=== PATIENT | female | born 2000 | race Asian ===

== ENCOUNTER 2023-09-20 20:28 | Emergency (ER) | payer OTHER ==
[~2023-09-20] VITALS: Ht 157.5 cm; Wt 51.7 kg
[2023-09-20] MEDS ORDERED: MULTTAB20 PO (20:47)
[2023-09-20 21:39] LABS: BASO % 0.3 % (0.0-1.0); EOS # 0.1 10^3/uL (0.0-0.5); EOS % 1.1 % (0.0-3.0); HEMATOCRIT 34.1 % (36.0-47.0); LYMPH # 3.2 10^3/uL (1.5-5.0); LYMPH % 26.3 % (24.0-44.0); MEAN CORPUSCULAR HEMOGLOBIN 30.8 pg (27.0-33.0); MEAN CORPUSCULAR HGB CONC 35.2 g/dl (32.0-36.5); MEAN CORPUSCULAR VOLUME 87.7 fl (80.0-96.0); MONO # 0.8 10^3/uL (0.0-0.8); MONO % 6.8 % (2.0-8.0); NEUTROPHILS # 7.9 10^3/uL (1.5-8.5); NEUTROPHILS % 65.2 % (36.0-66.0); PLATELET COUNT, AUTOMATED 246 10^3/uL (150-450); RED BLOOD COUNT 3.89 10^6/uL (4.00-5.40); WHITE BLOOD COUNT 12.1 10^3/uL (4.0-10.0)
[2023-09-20 22:04] LABS: BLOOD UREA NITROGEN 8 MG/DL (9-23); CALCIUM LEVEL 8.5 MG/DL (8.5-10.1); CARBON DIOXIDE LEVEL 21 MMOL/L (20-31); CHLORIDE LEVEL 108 MMOL/L (98-107); CREATININE FOR GFR 0.44 MG/DL (0.55-1.30); GLOMERULAR FILTRATION RATE > 60.0 (>60); GLUCOSE, FASTING 79 MG/DL (60-100); POTASSIUM SERUM 3.9 MMOL/L (3.5-5.1); SODIUM LEVEL 138 MMOL/L (136-145)
[2023-09-20 22:18] LABS: HCG, SERUM QUANTITATIVE 57234.2 MIU/ML (<4.2)
[2023-09-20] MEDS ORDERED: CEPH500C PO (23:49)
[2023-09-20 23:56] VITALS: BP 100/65; TEMP 98.4; O2SAT 99
== END 2023-09-20 23:58 | disposition home or self-care (01) ==
LOC: M ED 20:28
DX: R10.2 Pelvic and perineal pain (principal); R82.71 Bacteriuria; Z79.2 Long term (current) use of antibiotics; Z79.810 Long term (current) use of selective estrogen receptor modulators (SERMs)

== ENCOUNTER → 2024-03-09 | Outpatient (REF) | payer OTHER ==
[~2024-03-09] MED LIST: CEPH500C PO; MULTTAB20 PO
== END ==
LOC: M SFHCWAGY 17:05
PROVIDERS: ATTEND Nurse Practitioner Family
DX: Z34.03 Encounter for supervision of normal first pregnancy, third trimester (principal)

== ENCOUNTER 2024-04-04 06:02 | Inpatient (IN) | payer OTHER ==
[~2024-04-04] VITALS: Ht 154.9 cm; Wt 69.2 kg
[2024-04-04] VITALS (32 sets, daily range): BP systolic 84–180; BP diastolic 51–87
[2024-04-04] MEDS ORDERED: HOME MED LIST COMPLETE! XX SCH (06:25)
[2024-04-04] MEDS ORDERED: CARBOPROST TROMETHAMINE 250 MCG/ML AMP IM PRN (07:00)
[2024-04-04] MEDS ORDERED: METHYLERGONOVINE MALEATE 0.2MG/ML 1ML VIAL IM PRN (07:00)
[2024-04-04] MEDS ORDERED: OXYTOCIN DRIP 30 UNITS in IV 1 EA IV PRN (07:00)
[2024-04-04] MEDS ORDERED: TRANEXAMIC ACID INJection 1,000 MG in NS 100 ML IV PRN (07:00)
[2024-04-04] MEDS ORDERED: LACTATED RINGER'S 1000 ML IV PRN (07:00)
[2024-04-04 08:12] LABS: HEMATOCRIT 39.5 % (36.0-47.0); HEMOGLOBIN 13.9 g/dl (12.0-15.5); MEAN CORPUSCULAR HEMOGLOBIN 32.6 pg (27.0-33.0); MEAN CORPUSCULAR HGB CONC 35.2 g/dl (32.0-36.5); MEAN CORPUSCULAR VOLUME 92.5 fl (80.0-96.0); PLATELET COUNT, AUTOMATED 226 10^3/uL (150-450); RED BLOOD COUNT 4.27 10^6/uL (4.00-5.40); WHITE BLOOD COUNT 12.9 10^3/uL (4.0-10.0)
[2024-04-04] MEDS: miSOPROStol 50MCG 1/2 TABLET PO SCH (10:34)
[2024-04-04 11:44] LABS: HEPATITIS C VIRUS ABY INDEX 0.16 INDEX (<0.8)
[2024-04-04] MEDS ORDERED: diphenhydrAMINE 50MG/ML VIAL IV PRN (17:40)
[2024-04-04] MEDS ORDERED: ePHEDrine SULFATE 25 MG/5 ML(5MG/ML) SYRINGE IVP PRN (17:40)
[2024-04-04] MEDS ORDERED: EPIDURAL/PCA KEYS XX PRN (17:40)
[2024-04-04] MEDS ORDERED: ONDANSETRON 4MG 2ML VIAL IV PRN (17:40)
[2024-04-04] MEDS ORDERED: NALOXONE INJ 0.4MG/1ML VIAL IV PRN (17:40)
[2024-04-04] MEDS ORDERED: FENTANYL/ROPIVACAINE/NACL BAG 100 ML EPIDURAL SCH (17:40)
[2024-04-04] MEDS: LR 500 ML IV PRN (17:52)
[2024-04-04] MEDS: OXYTOCIN DRIP 30 UNITS in IV 1 EA IV SCH (19:20)
[2024-04-04] MEDS ORDERED: TERBUTALINE SULFATE 1 MG/ML 1ML VIAL As Ordered ONE (19:49)
[2024-04-05] VITALS (11 sets, daily range): BP systolic 93–127; BP diastolic 54–74; TEMP 99; O2SAT 97–99
[2024-04-05] MEDS: BICITRA 30ML SOLN UDC PO ONE (00:52)
[2024-04-05] MEDS: ceFAZolin SOD 2 GM in IV 1 EA IV ONE (00:53)
[2024-04-05] MEDS: AZITHROMYCIN INJ 500 MG, VIAL MATE ADAPTER 1 EACH in NS 250 ML IV ONE (00:53)
[2024-04-05] MEDS ORDERED: MORPHINE PRES-FREE INJ 10 MG/10 ML VIAL As Ordered ONE (01:07)
[2024-04-05] MEDS ORDERED: LIDOCAINE 2% W/EPINEPHRINE 20ML VIAL **PRES FREE As Ordered ONE (01:07)
[2024-04-05] MEDS ORDERED: OXYTOCIN 30UNITS IN 0.9% NaCl 500ML IV BAG As Ordered ONE (01:07)
[2024-04-05] MEDS ORDERED: ACETAMINOPHEN 1000MG/100ML IV BAG As Ordered ONE (01:07)
[2024-04-05] MEDS ORDERED: KETOROLAC 60MG 2ML VIAL As Ordered ONE (01:07)
[2024-04-05] MEDS ORDERED: ONDANSETRON 4MG 2ML VIAL As Ordered ONE (01:07)
[2024-04-05 01:25] LABS: CORD GAS ABE A -5.5; CORD GAS HCO3 A 21.8 MMOL/L; CORD GAS O2 SAT A 54.7 %; CORD GAS PCO2 A 49.3 mmHg; CORD GAS PH A 7.264 UNITS; CORD GAS PO2 A 24.8 mmHg; CORD GAS TCO2 A 23.3 MMOL/L
[2024-04-05] MEDS ORDERED: **NOTE PATIENT COMMENT** MISC XX SCH (01:25)
[2024-04-05] MEDS ORDERED: SLF 3 ML SYR IV SCH (01:25)
[2024-04-05] MEDS ORDERED: MEPERIDINE 25 MG/ML 1ML VIAL IV PRN (01:25)
[2024-04-05] MEDS ORDERED: LR 1,000 ML IV SCH (01:25)
[2024-04-05] MEDS ORDERED: fentaNYL 100 MCG/2 ML INJECTION IV PRN (01:25)
[2024-04-05] MEDS ORDERED: oxyCODONE 5MG TAB PO PRN (01:25)
[2024-04-05] MEDS ORDERED: ONDANSETRON 4MG 2ML VIAL IV PRN (01:25)
[2024-04-05] MEDS ORDERED: METOCLOPRAMIDE INJ 10MG/2ML VIAL IV PRN (01:25)
[2024-04-05] MEDS ORDERED: NALOXONE INJ 0.4MG/1ML VIAL IV PRN ×2 (01:25)
[2024-04-05] MEDS ORDERED: diphenhydrAMINE 50MG/ML VIAL IV PRN (01:25)
[2024-04-05 01:26] LABS: CORD GAS ABE V -4.1; CORD GAS HCO3 V 22.2 MMOL/L; CORD GAS O2 SAT V 70.3 %; CORD GAS PCO2 V 45.1 mmHg; CORD GAS PH V 7.311 UNITS; CORD GAS PO2 V 31.2 mmHg; CORD GAS SBC V 20.4 MMOL/L; CORD GAS TCO2 V 23.6 MMOL/L
[2024-04-05] MEDS ORDERED: DOCUSATE SODIUM 100MG CAPSULE PO PRN (01:55)
[2024-04-05] MEDS ORDERED: ONDANSETRON 4MG TAB PO PRN (01:55)
[2024-04-05] MEDS: LR 1,000 ML IV SCH (01:55)
[2024-04-05] MEDS ORDERED: RHOGAM 300MCG (1500IU) INJ IM SCH (01:55)
[2024-04-05] MEDS ORDERED: SIMETHICONE 80MG CHEW TAB PO PRN (01:55)
[2024-04-05] MEDS ORDERED: PERCOCET 5MG/325MG TAB PO PRN ×2 (01:55)
[2024-04-05] MEDS: OXYTOCIN DRIP 30 UNITS in IV 1 EA IV SCH (02:51)
[2024-04-05] MEDS: PRENATAL VITAMINS CHEWABLE TABLET PO SCH (08:57)
[2024-04-05] MEDS: KETOROLAC 30 MG/ML 1ML VIAL IV SCH (08:57)
[2024-04-06] MEDS ORDERED: OXYC1TAB23 PO (00:22)
[2024-04-06] MEDS ORDERED: IBUP80TA PO (00:22)
[2024-04-06] MEDS ORDERED: COLA100C5 PO (00:22)
[2024-04-06 02:00] VITALS: BP 98/52; O2SAT 97
[2024-04-06] MEDS: IBUPROFEN 800 MG TAB PO SCH (03:58)
[2024-04-06 06:00] VITALS: BP 93/50; O2SAT 100
[2024-04-06 06:56] LABS: HEMATOCRIT 30.3 % (36.0-47.0); MEAN CORPUSCULAR HEMOGLOBIN 32.3 pg (27.0-33.0); MEAN CORPUSCULAR HGB CONC 33.7 g/dl (32.0-36.5); MEAN CORPUSCULAR VOLUME 95.9 fl (80.0-96.0); PLATELET COUNT, AUTOMATED 184 10^3/uL (150-450); RED BLOOD COUNT 3.16 10^6/uL (4.00-5.40); WHITE BLOOD COUNT 11.6 10^3/uL (4.0-10.0)
[2024-04-06 06:58] LABS: HEMOGLOBIN 10.2 g/dl (12.0-15.5)
[2024-04-06 10:00] VITALS: BP 102/63; O2SAT 100
[2024-04-06 14:00] VITALS: BP 105/66; O2SAT 98
[2024-04-06 17:54] VITALS: BP 123/73; O2SAT 99
[2024-04-06 22:00] VITALS: BP 111/60; O2SAT 98
[2024-04-07 01:56] VITALS: BP 112/63; O2SAT 99
[2024-04-07 06:00] VITALS: BP 112/58; O2SAT 99
[2024-04-07] MEDS ORDERED: MEASLES,MUMPS,RUBELLA VACCINE INJ (MMR-II) SC.IMMUN ONE (09:00)
== END 2024-04-07 14:15 | disposition home or self-care (01) | DRG 788 ==
LOC: M LDO 06:02 → M LDI 06:53 → M OBS 04-05 03:35
PROVIDERS: ADMIT Obstetrics & Gynecology; ATTEND Specialist
PROC: 10D00Z1 Extraction of Products of Conception, Low, Open Approach (ICD-10-PCS; principal; 2024-04-05 00:56)
DX: O64.0XX0 Obstructed labor due to incomplete rotation of fetal head, not applicable or unspecified (principal); O62.0 Primary inadequate contractions; Z3A.40 40 weeks gestation of pregnancy; O76 Abnormality in fetal heart rate and rhythm complicating labor and delivery; Z37.0 Single live birth